=== PATIENT | female | born 1975 | race Caucasian/White ===

== ENCOUNTER 2021-04-21 20:42 | Emergency (ER) | payer OTHER ==
[2021-04-21 22:39] LABS: RED BLOOD COUNT 4.72 M/UL (4.00-5.10); WHITE BLOOD COUNT 10.7 K/UL (4.5-11.0)
[2021-04-21 23:19] LABS: BUN/CREATININE RATIO 12 (0-10)
[2021-04-22] MEDS ORDERED: VISTARIL 50 MG50 MG PO (10:42)
[2021-04-22] MEDS ORDERED: SEROQUEL400 MG PO (10:42)
== END 2021-04-22 11:35 | disposition home or self-care (01) ==
LOC: ER1 20:42
PROVIDERS: Emergency Medicine
DX: R44.3 Hallucinations, unspecified (principal); Z88.5 Allergy status to narcotic agent; F17.200 Nicotine dependence, unspecified, uncomplicated; Z20.822 Contact with and (suspected) exposure to COVID-19
CPT/HCPCS: 70450; 71045; 80053; 80307; 81001; 82140; 82550; 82553; 83605; 83690; 83735; 83874; 83880; 84100; 84439; 84443; 84484; 85025; 87040; 87086; 93005; 99285; G0480; J7030; U0002